=== PATIENT | male | born 1995 | race African-American/Black ===

== ENCOUNTER → 2018-04-04 | Outpatient (CLI) | payer OTHER ==
--- NOTE | 2018-04-04 16:22 | KCIC ---
MR of the left knee Indication: Left knee pain, worse with activity. Injury one year ago. Pain lateral, posterior and medial. Technique: The standard multiplanar sequences are obtained. FINDINGS: Artifact: No significant image degradation. Medial meniscus:Intact. Lateral meniscus: Mild blunting of the free margin, compatible with a small tear unless the patient has had prior meniscectomy. Anterior cruciate ligament: Intact Posterior cruciate ligament: Intact Medial collateral ligament: Intact. Lateral structures: * Iliotibial band: Intact. * Lateral collateral ligament: Intact. * Biceps femoris tendon: Intact * Popliteus tendon attachment: Intact Extensive mechanism: * Patellar tendon: Intact * Quadriceps tendon: Intact * Retinacular structures: Intact Fluid: Small joint effusion. No significant Kumar's cyst. Intra-articular bodies: None visualized Joint compartments * patellofemoral joint:Intact * medial compartment: Intact * lateral compartment: Well-defined full-thickness articular cartilage defect at the posterior weightbearing lateral femoral condyle measures 1 m wide by 1 m AP, with mild subjacent edema/cystic change. 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 Bones: No acute fracture. No aggressive bone destruction. Soft tissue: Unremarkable Impression: 1. 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 Mild subjacent edema/cystic change. Findings are likely related to prior transchondral trauma, age indeterminant. 2. No evidence of meniscal tear or other internal derangement. Electronically signed by: Paulino Lea MD (04/04/2018 4:19 PM) [facility]
== END | disposition home or self-care (01) ==
LOC: KCIC MRI 15:02
PROVIDERS: ATTEND Orthopaedic Surgery
DX: M94.262 Chondromalacia, left knee (principal)
CPT/HCPCS: 73721